=== PATIENT | female | born 1990 | race African-American/Black ===

== ENCOUNTER 2019-06-01 17:10 | Inpatient (IN) | payer OTHER ==
[2019-06-01 18:21] VITALS: BMI 29.2
[2019-06-01 19:26] LABS: COCAINE, UR NEGATIVE ng/ml (CUTOFF=300); METHADONE, UR NEGATIVE ng/ml (CUTOFF=300); OPIATES, URI NEGATIVE ng/ml (CUTOFF=300); PHENCYCLIDINE,URINE NEGATIVE ng/ml (CUTOFF=25); URINE AMPHETAMINES NEGATIVE ng/ml (CUTOFF=500); URINE BARBITURATES NEGATIVE ng/ml (CUTOFF=200); URINE BENZODIAZEPINES NEGATIVE ng/ml (CUTOFF=200)
[2019-06-01 20:09] LABS: BASO % 0.5 % (0-2.0); EOS % 0.4 % (0-4.5); HEMATOCRIT 36.9 % (32.4-45.2); HEMOGLOBIN 12.3 GM/dL (10.7-15.3); LYMPH % 21.9 % (8-40); MCH 32.6 pg (25.7-33.7); MCHC 33.4 g/dl (32.0-36.0); MEAN CELL VOLUME 97.5 fl (80-96); MEAN PLT VOLUME 8.8 fl (7.5-11.1); MONO % 7.4 % (3.8-10.2); NEUT % 69.8 % (42.8-82.8); PLATELET COUNT 193 K/MM3 (134-434); RBC 3.78 M/mm3 (3.60-5.2); RDW 13.6 % (11.6-15.6); WHITE BLOOD COUNT 7.4 K/mm3 (4.0-10.0)
[2019-06-01 20:19] LABS: INR 0.92 (0.83-1.09); PROTHROMBIN TIME (PATIENT) 10.9 SEC (9.7-13.0)
[2019-06-01 20:21] LABS: ACTIVATED PTT 29.4 SECONDS (25.2-36.5)
[2019-06-01 20:35] LABS: BLOOD UREA NITROGEN 5.8 mg/dL (7-18); CALCIUM 9.6 mg/dL (8.5-10.1); CREATININE 0.5 mg/dL (0.55-1.3); POTASSIUM 4.1 mmol/L (3.5-5.1)
[2019-06-02] MEDS ORDERED: PROMETHAZINE HCL 25 MG/1 ML VIAL IVPB PRN (01:31)
[2019-06-02] MEDS ORDERED: BUTORPHANOL TARTRATE 1 MG/ML VIAL IVPB PRN (01:31)
[2019-06-02] MEDS ORDERED: SODIUM CHLORIDE 1,000 ML IV SCH (01:45)
[2019-06-02] MEDS ORDERED: DINOPROSTONE 10 MG VAGINAL SUPPOSITORY VG ONE (01:45)
[2019-06-02] MEDS ORDERED: PROMETHAZINE HCL 25 MG/1 ML VIAL ONE (06:25)
[2019-06-02] MEDS ORDERED: BUTORPHANOL TARTRATE 1 MG/ML VIAL ONE ×2 (06:25)
[2019-06-02] MEDS ORDERED: FENTANYL/BUPIVACAINE/NS/PF - PCEA - 50 ML DISP.SYRIN EP ONE ×2 (08:57→14:54)
--- NOTE | 2019-06-02 08:57 | PN ---
Progress Note, Labor Vaginal Exam #1 Presentation: Vertex/Position (Pt. Examined and evaluated , CVX 2-3 cm / 50%/ intact /-2. post. QIP363/ min . + mod. variability . CTx Q 2 min will cont , monitor. pain managment prn . F/U cont. progress of labor)
[2019-06-02] MEDS: ELECTROLYTE-148 SOLN 1,000 ML IV SCH ×3 (09:10→16:49)
[2019-06-02] MEDS ORDERED: BUPIVACAINE HCL/PF 0.25% (2.5MG/ML) 10 ML VIAL ONE (09:36)
[2019-06-02] MEDS ORDERED: SODIUM CHLORIDE 0.9% P/F 10 ML VIAL IJ ONE (09:37)
[2019-06-02] MEDS: FENTANYL/BUPIVACAINE/NS/PF - PCEA - 50 ML DISP.SYRIN EP SCH ×2 (10:15→15:03)
--- NOTE | 2019-06-02 11:19 | PN ---
Progress Note, Labor Vaginal Exam #2 Labor Exam Date: 06/02/19 Labor Exam Time: 11:00 Heart Rate (range): 130 Dilatation: 4cm Effacement (%): 60% Amniotic Membrane Status: Intact Presentation: Vertex/Position
[2019-06-02] MEDS ORDERED: OXYTOCIN 30 UNITS in 0.9% NS 30 UNIT/500 ML INFUS.BAG IVPB ONE (12:08)
[2019-06-02] MEDS ORDERED: OXYTOCIN 30 UNITS in 0.9% NS 30 UNIT/500 ML INFUS.BAG IVPB SCH (12:15)
[2019-06-02] MEDS ORDERED: NALOXONE HCL 0.4 MG/ML VIAL IVPUSH PRN (12:34)
--- NOTE | 2019-06-02 13:46 | PN ---
Progress Note (short form) - Note Progress Note: Patient seen and examined at bed side. FHR: 130-140 Catg I [place]: Q3 min VE: 5/80/-3 AROM LIGHT MK. A/P Pitocin started, titration as per protocol. SCALP MONITOR PLACED EPIDURAL IN PLACE, PATIENT COMFORTABLE Will Continue current management. Anticipating .
--- NOTE | 2019-06-02 15:03 | PN ---
Progress Note, Labor Vaginal Exam #6 Labor Exam Date: 06/02/19 Labor Exam Time: 15:00 Heart Rate (range): 130-140 Dilatation: 6 Amniotic Membrane Status: Ruptured Presentation: Vertex/Position Station: 0 Remarks: Patient had some variable decleration. VE: 6/90/0 IUPC placed and amino infusion started FHR: Catg' I A/P Continue current mangment Anticipating
--- NOTE | 2019-06-02 15:43 | HP ---
Past Medical History - Primary Care Physician PCP:: Delio Zuniga (H&P written by Dr. Zuniga, being entered by Dr. Vy Rodriguez into EMR) - Admission Chief Complaint: Induction of labor History of Present Illness: 28 year old admitted at 41 weeks gestation for induction of labor. Patient of Dr. Leyva at [facility]. History Source: Patient Limitations to Obtaining History: No Limitations - Past Medical History ...: 1 ...Para: 0 ...LMP: 08/19/18 ... Weeks Gestation by Dates: 40.4 ...EDC by Dates: 05/28/19 ...EDC by Sono: 05/25/19 Psych: Yes: Depression (earlier during which has since resolved) - Past Surgical History Hx Myomectomy: No Hx Transabdominal Cerclage: No Additional Surgical History: ankle surgery several years ago - Smoking History Smoking history: Never smoked Have you smoked in the past 12 months: No - Alcohol/Substance Use Hx Alcohol Use: No History of Substance Use: reports: Marijuana Home Medications - Allergies Allergies/Adverse Reactions: Allergies Allergy/AdvReac Type Severity Reaction Status Date / Time benzoyl peroxide Allergy Rash Verified 06/01/19 18:30 - Home Medications Home Medications: Ambulatory Orders Prenat 115/Iron Fum/Folic/Dss [ 19 Tablet] 1 tab PO DAILY 06/01/19 Family Medical History Family Hx Cardiac Disorders: Mother (hypertension), Father (hypertension) Review of Systems - Review of Systems Constitutional: reports: No Symptoms Eyes: reports: No Symptoms HENT: reports: No Symptoms Cardiovascular: reports: No Symptoms Respiratory: reports: No Symptoms Gastrointestinal: reports: No Symptoms Genitourinary: reports: No Symptoms Integumentary: reports: No Symptoms Neurological: reports: No Symptoms Physical Exam - Maternity Vital Signs: Vital Signs Temperature 98.4 F 06/02/19 14:07 Pulse Rate 76 06/02/19 14:30 Respiratory Rate 20 06/02/19 15:03 Blood Pressure 113/60 06/02/19 14:03 O2 Sat by Pulse Oximetry (%) 100 06/02/19 15:03 Constitutional: Yes: Well Nourished Eyes: Yes: WNL HENT: Yes: WNL Cardiovascular: Yes: WNL Lungs: Clear to auscultation Breast(s): Yes: WNL - Abdominal Exam/OB Contractions: Yes Regularity: Irregular Intensity: Mild Heart Rate (range): 140 Decelerations: Variable - Vaginal Exam/OB Vaginal Bleediing: No Dilatation (cm): 0 Presentation: Vertex/Position Station: -3 - Physical Exam Extremities: Yes: WNL Edema: No - Labs Lab Results: CBC, BMP 06/01/19 19:15 06/01/19 19:15 Imaging - Results Other: Other (12/23/18, Group O Positive, varicella immune, rubella immune, RPR nonreactive, HBsAg negative, chlamydia neg, gonorrhea neg, HIV neg 03/21/19 PPD neg) Problem List - Problems (1) Post-dates Assessment/Plan: 41 week gestation admitted for induction of labor. Risck and benefits explained. Consent obtained by Dr. Delio Zuniga. Problems reviewed: Yes Code(s): O48.0 - POST-TERM Qualifiers: Post-term type: 40-42 weeks gestation Qualified Code(s): O48.0 - Post-term Assessment/Plan 41 week gestation admitted for induction of labor. Risk and benefits explained. Consent obtained by Dr. Delio Zuniga.
--- NOTE | 2019-06-02 16:41 | PN ---
Progress Note, Labor Vaginal Exam #6 Labor Exam Date: 06/02/19 Labor Exam Time: 15:45 Heart Rate (range): 130-140 Dilatation: 8/100/ Amniotic Membrane Status: Ruptured Presentation: Vertex/Position Station: 0 Remarks: Patient seen and examined at bed side. FHR: 130-140 Catg I- II [place]: Q2-3 min VE: 8/100/0 A/P Pitocin, titration as per protocol. Amino infusion running Anticipating .
[2019-06-02] MEDS ORDERED: OXYTOCIN 20 UNITS in 0.9% NS 20 UNIT/1,000 ML INFUS.BAG IV ONE ×2 (17:04→20:43)
--- NOTE | 2019-06-02 17:32 | PN ---
Progress Note, Labor Vaginal Exam #6 Labor Exam Date: 06/02/19 Labor Exam Time: 17:25 Heart Rate (range): 130-140 Dilatation: 9 Effacement (%): 100 Amniotic Membrane Status: Ruptured Presentation: Vertex/Position Station: 0 (Patient seen and evaluated at bed side FHR: Catg. I VE: 9/100/ 0 [place]: CTX Q 2 min A/P labor progrsseing Continue current mangment Anticipating )
--- NOTE | 2019-06-02 20:04 | PN ---
Progress Note, Labor Vaginal Exam #6 Labor Exam Date: 06/02/19 Labor Exam Time: 19:45 Heart Rate (range): 130-140 Dilatation: 10 Effacement (%): 100 Amniotic Membrane Status: Ruptured Presentation: Vertex/Position Station: 0 (Will labor down and then start pushing Anticipating )
[2019-06-02] MEDS ORDERED: LIDOCAINE HCL 1% PRESERVATIVE FREE - 30ML VIAL ONE (20:43)
[2019-06-02] MEDS ORDERED: WITCH HAZEL 50% (TUCKS) 40 PAD/JAR PAD TP PRN (21:24)
[2019-06-02] MEDS ORDERED: BENZOCAINE 20% 57 GM BOTTLE TP PRN (21:24)
[2019-06-02] MEDS ORDERED: BISACODYL 10 MG SUPP.RECT RC PRN (21:24)
[2019-06-02] MEDS ORDERED: BENZOCAINE 28 GM HEMORRHOIDAL OINTMENT TP PRN (21:24)
--- NOTE | 2019-06-02 21:24 | PN ---
Delivery - Delivery Vaginal Delivery: No Problems Type of Anesthesia: Epidural Episiotomy/Laceration: None EBL (cc): 250 ( vertex live baby boy, over intact pernium, Nuchal cord X 1 tight, APGARS 9/9, placenta deliverd spontenously intact, 3 vessele cord, EBL 250 cc, cord blood collected, all lap counts correct X 2.) Delivery, Single - [place] Feeding Plan Initial Plan: Elected not to breastfeed exclusively throughout hospitalization
[2019-06-02] MEDS ORDERED: OXYTOCIN 20 UNITS in 0.9% NS 20 UNIT/1,000 ML INFUS.BAG IV SCH (21:30)
[2019-06-02] MEDS ORDERED: ACETAMINOPHEN 325 MG TABLET (FP) ONE (21:42)
[2019-06-02] MEDS ORDERED: IBUPROFEN 600 MG TABLET (FP) PO ONE (21:42)
[2019-06-02] MEDS: ACETAMINOPHEN 325 MG TABLET (FP) PO PRN (21:45)
[2019-06-02] MEDS: IBUPROFEN 600 MG TABLET (FP) PO PRN (21:45)
[2019-06-03] MEDS: FERROUS SO4 325 MG TABLET (FP) PO SCH ×2 (08:15→18:14)
[2019-06-03 09:03] LABS: BASO % 0.3 % (0-2.0); EOS % 0.1 % (0-4.5); HEMATOCRIT 30.3 % (32.4-45.2); HEMOGLOBIN 10.3 GM/dL (10.7-15.3); LYMPH % 9.2 % (8-40); MCH 32.7 pg (25.7-33.7); MCHC 33.8 g/dl (32.0-36.0); MEAN CELL VOLUME 96.6 fl (80-96); MONO % 5.1 % (3.8-10.2); NEUT % 85.3 % (42.8-82.8); PLATELET COUNT 161 K/MM3 (134-434); RBC 3.14 M/mm3 (3.60-5.2); RDW 12.9 % (11.6-15.6); WHITE BLOOD COUNT 15.7 K/mm3 (4.0-10.0)
--- NOTE | 2019-06-03 17:38 | PN ---
Progress Note (short form) - Note Progress Note: PPD#1 afebrile, mild lochia, no vaginal bleeding , tolerated diet well . ambulate fundus firm , below umbilicus , no abdominal distension . mild lochia. perinum intact . will cont. PO pain managment . ambulate . following discharge F/U in [facility] 6 weeks
[2019-06-03] MEDS: IBUPROFEN 600 MG TABLET (FP) PO PRN (18:14)
[2019-06-03] MEDS: ACETAMINOPHEN 325 MG TABLET (FP) PO PRN (18:15)
[2019-06-03] MEDS ORDERED: SENNOSIDES/DOCUSATE COMBO (SENNA PLUS) TABLET (UD) PO PRN (22:00)
[2019-06-04] MEDS: FERROUS SO4 325 MG TABLET (FP) PO SCH (08:25)
[2019-06-04 08:51] VITALS: BP 124/74; PULSE 69; TEMP 97.8
[2019-06-04] MEDS: ACETAMINOPHEN 325 MG TABLET (FP) PO PRN (09:59)
[2019-06-04] MEDS: IBUPROFEN 600 MG TABLET (FP) PO PRN (09:59)
[2019-06-04] MEDS ORDERED: PRENATAL VITAMINS W/ FOLIC ACID TABLET (FP) PO SCH (10:00)
== END 2019-06-04 13:15 | disposition home or self-care (01) | DRG 560 ==
LOC: JERBED 17:10 → JLDR 18:01 → J3W 06-02 22:48
PROVIDERS: ADMIT Family Medicine; ATTEND Family Medicine
PROC: 10E0XZZ Delivery of Products of Conception, External Approach (ICD-10-PCS; principal; 2019-06-02)
DX: O48.0 Post-term pregnancy (principal); O69.81X0 Labor and delivery complicated by cord around neck, without compression, not applicable or unspecified; Z3A.41 41 weeks gestation of pregnancy; Z37.0 Single live birth
CPT/HCPCS: 36415; 59409; 80048; 80307; 85025; 85610; 85730; 86593; 86850; 86900; 86901; J7030